=== PATIENT | female | born 1975 | race Caucasian/White ===

== ENCOUNTER 2017-12-01 06:08 | Day surgery (SDC) | payer MEDICAID ==
[2017-11-26 12:09] LABS: Basophils % (Auto) 0.7 % (0.0-1.8); Eosinophils # (Auto) 0.1 K/mm3 (0.0-0.4); Eosinophils % (Auto) 1.3 % (0.0-4.3); Hemoglobin 14.2 gm/dl (10.1-14.3); Lymphocytes # (Auto) 2.1 K/mm3 (1.2-5.4); Lymphocytes % (Auto) 32.4 % (13.4-35.0); Mean Corpuscular HGB Conc 33 % (30-34); Mean Corpuscular Hemoglobin 29 pg (28-32); Mean Corpuscular Volume 88 fl (79-97); Monocytes # (Auto) 0.3 K/mm3 (0.0-0.8); Monocytes % (Auto) 4.4 % (0.0-7.3); Platelet Count 221 K/mm3 (140-440); Red Cell Distribution Width 14.3 % (13.2-15.2)
[2017-11-26 12:46] LABS: BUN/Creatinine Ratio 17; Blood Urea Nitrogen 10 mg/dL (7-17); Calcium 9.3 mg/dL (8.4-10.2); Hemolysis Index 14
[2017-12-01] MEDS ORDERED: NACL BACTERIOSTATIC INFILTRATI ONE (06:46)
[2017-12-01] MEDS ORDERED: VANCOMYCIN/0.45 NS 1 GM/250 ML 1 GM/250 ML BAG IV ONE (07:00)
[2017-12-01] MEDS ORDERED: VANCOMYCIN/NS 1 GM/250 ML 1 GM/250 ML BAG IV NR (07:00)
[2017-12-01] MEDS ORDERED: HumuLIN R SUB-Q NR (07:07)
[2017-12-01] MEDS ORDERED: NACL 0.9% 1000 ML 1,000 ML IV SCH (07:08)
[2017-12-01] MEDS ORDERED: VERSED IV NR ×2 (07:08→08:00)
[2017-12-01] MEDS ORDERED: BACITRACIN ONE (07:19)
[2017-12-01] MEDS ORDERED: MARCAINE 0.25% INFILTRATI ONE (07:19)
[2017-12-01] MEDS ORDERED: SUBLIMAZE IV NR (07:20)
--- NOTE | 2017-12-01 07:29 | Anesthesia Day of Surgery ---
Anesthesia Day of Surgery - Day of Surgery Patient Examined: Yes Patient H&P Reviewed: Yes Patient is NPO: Yes
[2017-12-01] MEDS ORDERED: XYLOCAINE 1% 20 mL INFILTRATI NR (07:30)
[2017-12-01] MEDS ORDERED: DIPRIVAN 10 MG/ML IV ONE (07:30)
[2017-12-01] MEDS ORDERED: DILAUDID ONE (07:31)
[2017-12-01] MEDS ORDERED: MARCAINE 0.5% INFILTRATI NR (08:00)
[2017-12-01] MEDS ORDERED: NACL P/F VIAL (10 ML) INFILTRATI NR (08:00)
[2017-12-01] MEDS ORDERED: NEURONTIN PO NR (08:00)
--- NOTE | 2017-12-01 08:17 | Discharge Summary ---
Short Stay Discharge Plan Activity: no restrictions Weight Bearing Status: Full Weight Bearing Diet: regular Wound: remove dressing (5 days) Follow up with: STEPHANIE LORENZO MD [Primary Care Provider] - 6 Weeks WORK,KARI Morales JR, MD [Staff Physician] - 7 Days
--- NOTE | 2017-12-01 08:19 | Short Stay Summary ---
Short Stay Documentation Date of service: 12/01/17 - Allergies and Medications Current Medications: Allergies Penicillins Allergy (Verified 12/01/17 07:16) Hives Home Medications Medication Instructions Recorded Confirmed Last Taken Type Insulin Aspart [NovoLOG Flexpen] 0 units SQ AC 11/24/17 12/01/17 11/30/17 History Tamoxifen Citrate 10 mg PO QDAY 11/24/17 12/01/17 11/24/17 History glipiZIDE 4 mg PO BID 11/24/17 11/24/17 11/30/17 History metFORMIN [Glucophage] 500 mg PO BID 11/24/17 11/24/17 11/30/17 History Insulin Glargine,Hum.rec.anlog 20 unit SQ QHS 12/01/17 12/01/17 11/29/17 History [Basaglar Kwikpen U-100] Active Medications Bupivacaine HCl (Marcaine 0.5%) 20 ml INFILTRATI PREOP NR Stop: 12/01/17 12:00 Celecoxib (Celebrex) 200 mg PO PREOP NR Stop: 12/01/17 10:00 Last Admin: 12/01/17 07:50 Dose: 200 mg Gabapentin (Neurontin) 300 mg PO PREOP NR Stop: 12/01/17 09:00 Last Admin: 12/01/17 07:49 Dose: 300 mg Sodium Chloride (Nacl 0.9% 1000 Ml) 1,000 mls @ 75 mls/hr IV DIRECT FREDIS Last Admin: 12/01/17 07:26 Dose: 75 mls/hr Lidocaine (Xylocaine 1% 20 Ml) 10 ml INFILTRATI PREOP NR Stop: 12/01/17 09:00 Midazolam HCl (Versed) 2 mg IV PREOP NR Stop: 12/01/17 23:59 Last Admin: 12/01/17 07:26 Dose: 2 mg Midazolam HCl (Versed) 2 mg IV PREOP NR Stop: 12/01/17 23:59 Sodium Chloride (Nacl P/F Vial (10 Ml)) 1 ml INFILTRATI PREOP NR Stop: 12/01/17 09:00 - Brief post op/procedure progress note Date of procedure: 12/01/17 Pre-op diagnosis: Balwinder. Acquired Breast Deformity/Balwinder. Absence of Breasts/Hx of Breast Cancer Post-op diagnosis: same Procedure: Balwinder.Tissue Um Rn Placement Anesthesia: GETA Surgeon: KARI ELIAS JR Pathology: none Specimen disposition: to lab Condition: stable - Disposition Condition at discharge: Good Disposition: DC-01 TO HOME OR SELFCARE Short Stay Discharge Plan Follow up with: KARI ELIAS JR, MD [Staff Physician] - 7 Days STEPHANIE LORENZO MD [Primary Care Provider] - 6 Weeks
[2017-12-01] MEDS ORDERED: NACL 0.9% IR ONE (08:42)
[2017-12-01] MEDS ORDERED: BACITRACIN IR ONE (08:43)
[2017-12-01] MEDS ORDERED: NACL 0.9% 1000 ML IR ONE ×2 (08:43)
[2017-12-01] MEDS ORDERED: ZOFRAN ONE (09:15)
[2017-12-01] MEDS ORDERED: XYLOCAINE MPF 2% ONE (09:15)
--- NOTE | 2017-12-01 10:06 | Operative Report ---
PREOPERATIVE DIAGNOSES: 1. Bilateral absence of breasts. 2. History of breast cancer. POSTOPERATIVE DIAGNOSES: 1. Bilateral absence of breasts. 2. History of breast cancer. PROCEDURE: Bilateral tissue [employer], breast reconstruction. SURGEON: Anton Cuevas MD CONSULTANT RN: Tiffanie Leon CSA FINDINGS: 650 mL [place] tissue senior director creative services with indwelling port was placed bilaterally. DESCRIPTION OF PROCEDURE: The patient was brought to the operating room and placed on the table in supine position. Following administration of general anesthesia, the chest was prepped with Betadine solution and draped in usual sterile manner. A #10 blade scalpel was used to incise previous mastectomy scar, deepened through subcutaneous fat down to the pectoralis major muscle followed by elevation of skin flaps, superior and inferior for approximately 4 cm on either side followed by splitting of the pectoralis major muscle in the direction of its fibers. Subpectoral pocket was dissected using electrocautery and a lighted retractor. Hemostasis controlled using electrocautery. Tissue [employer] inserted into the subpectoral space, muscle closed with a running 2-0 Monocryl sutures followed by interrupted and running subcuticular 2-0 Monocryl sutures for the skin. Tissue senior director creative services, Mastisol, Steri-Strips, and sterile dressings applied. Each tissue [employer] director [employer] was filled intraoperatively with 180 mL of normal saline. The patient tolerated the procedure well and returned to recovery room in stable condition. JOB# [id number] FTW/WILLY
[2017-12-01] MEDS ORDERED: DILAUDID IV PRN (10:13)
--- NOTE | 2017-12-01 10:13 | Post Anesthesia Evaluation ---
- Post Anesthesia Evaluation Patient Participated: Yes Airway Patent: Yes Stable Respiratory Function: Yes Nausea/Vomiting: No Temp > 96.8F: Yes Pain Manageable: Yes Adequeate Hydration: Yes Anesthesia Complications: No
--- NOTE | 2017-12-01 10:20 | Anesthesia Day of Surgery ---
Anesthesia Day of Surgery - Day of Surgery Patient Examined: Yes Patient H&P Reviewed: Yes Patient is NPO: Yes
[2017-12-01] MEDS ORDERED: PERCOCET 5/325 PO PRN (10:45)
[2017-12-01 16:23] VITALS: BP 115/70
== END 2017-12-01 12:40 | disposition home or self-care (01) ==
LOC: OR 06:08
PROVIDERS: ATTEND Plastic Surgery
DX: Z42.1 Encounter for breast reconstruction following mastectomy (principal); E11.9 Type 2 diabetes mellitus without complications; Z79.899 Other long term (current) drug therapy; Z88.0 Allergy status to penicillin; Z90.49 Acquired absence of other specified parts of digestive tract; Z87.891 Personal history of nicotine dependence; Z79.84 Long term (current) use of oral hypoglycemic drugs
CPT/HCPCS: 19357; 36415; 80048; 82962; 84703; 85025; 93005; 93010; C1789; J1170; J2250; J2405; J2704; J3370; J7030; J1815